=== PATIENT | female | born 1975 | race Caucasian/White ===

== ENCOUNTER 2024-11-21 15:20 | Emergency (ER) | payer MEDICAID ==
[~2024-11-21] VITALS: Ht 154.9 cm; Wt 107.0 kg
[~2024-11-21 15:20] MED LIST: ABIL5 PO; METO25TA6 MT
[2024-11-21 15:29] VITALS: O2SAT 97
[2024-11-21 15:31] VITALS: BP 148/85; PULSE 106; RESP 18; TEMP 36.7; O2SAT 96
== END 2024-11-21 18:51 | disposition left against medical advice (07) ==
LOC: ER 15:20
DX: Z02.79 Encounter for issue of other medical certificate (principal); Z53.21 Procedure and treatment not carried out due to patient leaving prior to being seen by health care provider